=== PATIENT | female | born 1975 | race Hispanic/Latino ===

== ENCOUNTER 2020-12-09 05:30 | Observation (INO) | payer BC ==
[2020-12-05 12:36] VITALS: BP 135/63
[2020-12-05 12:56] LABS: BASOPHILS % (AUTO) 0.4 % (0.0-5.0); EOSINOPHILS % (AUTO) 0.7 % (0.0-8.0); HEMATOCRIT 39.5 % (36-48); LYMPHOCYTES % (AUTO) 20.7 % (21.0-51.0); MEAN CORPUSCULAR HEMOGLOBIN 30.1 pg (27.0-33.0); MEAN CORPUSCULAR HGB CONC 34.4 g/dL (32.0-36.0); MEAN CORPUSCULAR VOLUME 87.4 fL (79-99); MONOCYTES % (AUTO) 5.5 % (3.0-13.0); NEUTROPHILS % (AUTO) 72.1 % (40.0-77.0); PLATELET COUNT (AUTO) 233 K/uL (130-400); RED BLOOD CELL COUNT(AUTO) 4.52 MIL/uL (4.00-5.50); RED CELL DISTRIBUTION WIDTH 12.5 % (11.0-15.5); WHITE BLOOD COUNT (AUTO) 6.7 K/uL (4.8-10.8)
[2020-12-09] VITALS (22 sets, daily range): BP systolic 112–146; BP diastolic 66–86
[~2020-12-09] VITALS: Ht 152.4 cm; Wt 62.7 kg
[~2020-12-09 05:30] MED LIST: FERR159T2 PO
[2020-12-09] MEDS ORDERED: LACTATED RINGERS 1000ML 1,000 ML IV ONE (05:48)
[2020-12-09] MEDS: CEFAZOLIN SODIUM 1 GM VIAL ONE ×2 (05:54→07:02)
[2020-12-09] MEDS ORDERED: LIDOCAINE PF 100MG/5ML (2%) SYRINGE 5ML ONE (06:30)
[2020-12-09] MEDS ORDERED: SUCCINYLCHOLINE CHLORIDE 20 MG/ML 10 ML VIAL ONE (06:30)
[2020-12-09] MEDS ORDERED: PROPOFOL 10 MG/ML 20ML VIAL IV ONE (06:30)
[2020-12-09] MEDS ORDERED: GLYCOPYRROLATE 1 MG/5 ML SYRINGE ONE (06:31)
[2020-12-09] MEDS ORDERED: NEOSTIGMINE 5MG/5ML SYR IV ONE (06:31)
[2020-12-09] MEDS ORDERED: ROCURONIUM 10MG/1ML SYR 10 MG/ML ML ONE (06:31)
[2020-12-09] MEDS ORDERED: MIDAZOLAM HCL 1 MG/ML 2ML VIAL ONE (06:32)
[2020-12-09] MEDS ORDERED: FENTANYL CITRATE PF 50 MCG/1 ML 2ML VIAL ONE ×2 (06:58→08:43)
[2020-12-09] MEDS ORDERED: PHENYLEPHRINE HCL 10 MG/ML 1ML VIAL IV ONE (07:03)
[2020-12-09] MEDS ORDERED: EPHEDRINE SULFATE 50 MG/ML AMPULE ONE (07:04)
[2020-12-09] MEDS ORDERED: ONDANSETRON HCL 4 MG/2 ML VIAL ONE (08:22)
[2020-12-09] MEDS ORDERED: MEPERIDINE-PF 25 MG/ML SYG ONE ×2 (09:06→09:27)
[2020-12-09] MEDS ORDERED: ONDANSETRON HCL 4 MG/2 ML VIAL IVP PRN (10:45)
[2020-12-09] MEDS ORDERED: BISACODYL 10 MG SUPP.RECT RC PRN (10:45)
[2020-12-09] MEDS ORDERED: PROMETHAZINE HCL 25 MG/ML 1ML AMPULE IM PRN (10:45)
[2020-12-09] MEDS ORDERED: IBUPROFEN 600 MG TABLET PO PRN (10:45)
[2020-12-09] MEDS ORDERED: MEPERIDINE-PF 75 MG/ML SYG ONE (10:49)
[2020-12-09] MEDS: MEPERIDINE-PF 75 MG/ML SYG IM PRN ×2 (10:54→14:24)
[2020-12-09] MEDS: PROMETHAZINE HCL 25 MG/ML 1ML AMPULE IM PRN ×2 (10:54→14:23)
[2020-12-09] MEDS: DEXTROSE 5 %-0.45 % NACL 1,000 ML IV PRN ×2 (12:26→20:18)
[2020-12-09] MEDS: ACETAMINOPHEN-CODEINE 300/30MG TAB PO PRN (19:23)
[2020-12-09] MEDS: DOCUSATE SODIUM 100 MG CAP PO PRN (21:06)
[2020-12-09] MEDS: SIMETHICONE 80 MG TAB.CHEW PO PRN (21:07)
[2020-12-10] MEDS: PROMETHAZINE HCL 25 MG/ML 1ML AMPULE IM PRN (00:13)
[2020-12-10] MEDS: MEPERIDINE-PF 75 MG/ML SYG IM PRN (00:14)
[2020-12-10 03:00] VITALS: BP 114/73
[2020-12-10] MEDS ORDERED: HYDROCODONE/ACETAMINOPHEN 7.5/325 MG TAB PO PRN (03:30)
[2020-12-10] MEDS ORDERED: HYDROCODONE/ACETAMINOPHEN 5/325 MG TAB PO PRN (03:45)
[2020-12-10] MEDS: DEXTROSE 5 %-0.45 % NACL 1,000 ML IV PRN (04:26)
[2020-12-10 05:29] LABS: HEMATOCRIT 36.2 % (36-48); MEAN CORPUSCULAR HEMOGLOBIN 29.4 pg (27.0-33.0); MEAN CORPUSCULAR HGB CONC 33.1 g/dL (32.0-36.0); MEAN CORPUSCULAR VOLUME 88.7 fL (79-99); RED BLOOD CELL COUNT(AUTO) 4.08 MIL/uL (4.00-5.50); RED CELL DISTRIBUTION WIDTH 12.6 % (11.0-15.5)
[2020-12-10 07:19] VITALS: BP 113/71
[2020-12-10] MEDS: SIMETHICONE 80 MG TAB.CHEW PO PRN ×2 (08:27→21:10)
[2020-12-10] MEDS: DOCUSATE SODIUM 100 MG CAP PO PRN ×2 (08:27→21:09)
[2020-12-10] MEDS: ACETAMINOPHEN-CODEINE 300/30MG TAB PO PRN (08:27)
[2020-12-10] MEDS: NITROFURANTOIN MONOHYD/M-CRYST 100 MG CAPSULE PO SCH ×2 (10:22→21:09)
[2020-12-10 11:28] VITALS: BP 129/84
[2020-12-10] MEDS ORDERED: ACETAMINOPHEN-CODEINE 300/30MG TAB PO PRN (13:00)
[2020-12-10] MEDS: IBUPROFEN 800 MG TAB PO PRN ×2 (13:26→23:47)
[2020-12-10 19:16] VITALS: BP 123/71
[2020-12-10 23:34] VITALS: BP 119/75
[2020-12-11 03:06] VITALS: BP 111/71
[2020-12-11 07:10] VITALS: BP 104/70
[2020-12-11] MEDS: IBUPROFEN 800 MG TAB PO PRN (09:08)
[2020-12-11] MEDS: DOCUSATE SODIUM 100 MG CAP PO PRN (09:08)
[2020-12-11] MEDS: SIMETHICONE 80 MG TAB.CHEW PO PRN (09:08)
[2020-12-11] MEDS: NITROFURANTOIN MONOHYD/M-CRYST 100 MG CAPSULE PO SCH (09:08)
[2020-12-11 11:13] VITALS: BP 119/85
[2020-12-11] MEDS ORDERED: ACET1TAB25 PO (11:22)
[2020-12-11] MEDS ORDERED: MACR100 PO (11:22)
== END 2020-12-11 13:25 | disposition home or self-care (01) ==
LOC: DAH 05:30 → WSH 05:31 → DAH 05:31 → WSH 09:55
PROVIDERS: ADMIT Obstetrics & Gynecology; ATTEND Obstetrics & Gynecology
DX: N92.1 Excessive and frequent menstruation with irregular cycle (principal); Z20.822 Contact with and (suspected) exposure to COVID-19; N39.3 Stress incontinence (female) (male); N81.4 Uterovaginal prolapse, unspecified; K46.9 Unspecified abdominal hernia without obstruction or gangrene; N83.201 Unspecified ovarian cyst, right side
CPT/HCPCS: 36415 ×3; 57260; 57288; 58263; 85025; 85027; 86850 ×2; 86900 ×2; 86901 ×2; 96360; 96361 ×2; 96372 ×2; A4215; A4216; A4221; A4222; A4223 ×2; A4344; A4351; A4510; A4600; A4606; A4663; A5113; A6260; C1771; C9803; G0378 ×54; J0330; J0690; J2001; J2175 ×5; J2250; J2370; J2405; J2550 ×2; J2704; J2710; J3010 ×2; J3490 ×2; J7120; U0003

== ENCOUNTER 2021-01-16 01:38 | Emergency (ER) | payer BC ==
[~2021-01-16] VITALS: Ht 152.4 cm; Wt 60.8 kg
[~2021-01-16 01:38] MED LIST changes: +ACET1TAB25 PO; +MACR100 PO
[2021-01-16 02:01] VITALS: BP 121/77
[2021-01-16 02:20] LABS: BASOPHILS % (AUTO) 0.5 % (0.0-5.0); EOSINOPHILS % (AUTO) 3.4 % (0.0-8.0); HEMATOCRIT 38.6 % (36-48); LYMPHOCYTES % (AUTO) 49.9 % (21.0-51.0); MEAN CORPUSCULAR HEMOGLOBIN 29.7 pg (27.0-33.0); MEAN CORPUSCULAR HGB CONC 33.4 g/dL (32.0-36.0); MEAN CORPUSCULAR VOLUME 88.7 fL (79-99); PLATELET COUNT (AUTO) 210 K/uL (130-400); RED BLOOD CELL COUNT(AUTO) 4.35 MIL/uL (4.00-5.50); RED CELL DISTRIBUTION WIDTH 11.8 % (11.0-15.5); WHITE BLOOD COUNT (AUTO) 5.7 K/uL (4.8-10.8)
[2021-01-16 02:25] LABS: APPEARANCE,URINE Cloudy (CLEAR); BILIRUBIN,URINE Negative (NEGATIVE); COLOR,URINE Yellow (YELLOW); GLUCOSE, URINE (UA) Negative (NEGATIVE); KETONES,URINE Negative (NEGATIVE); LEUKOCYTE ESTERASE ,URINE Large (NEGATIVE); NITRATE,URINE Negative (NEGATIVE); OCCULT BLOOD,URINE Large (NEGATIVE); PROTEIN,URINE Negative (NEGATIVE)
[2021-01-16 02:30] LABS: CREATININE 0.6 mg/dL (0.5-1.5); POTASSIUM 3.5 mmol/L (3.5-5.1)
[2021-01-16 02:33] VITALS: BP 119/65
[2021-01-16 02:35] LABS: ALBUMIN 4.1 g/dL (3.5-5.0); BILIRUBIN,TOTAL 0.2 mg/dL (0.2-1.0)
[2021-01-16 02:40] LABS: BACTERIA,URINE Few /HPF (None Seen); RBC,URINE 0-1 /HPF (0-1)
[2021-01-16] MEDS ORDERED: 0.9%NACL 1000ML 1,000 ML IV ONE (04:00)
[2021-01-16] MEDS ORDERED: CEFTRIAXONE 1G VIAL IVP ONE (04:00)
[2021-01-16 04:32] VITALS: BP 123/61
== END 2021-01-16 04:44 | disposition home or self-care (01) ==
LOC: EDH 02:07
DX: R07.89 Other chest pain (principal); N30.00 Acute cystitis without hematuria; R10.31 Right lower quadrant pain; D64.9 Anemia, unspecified; Z90.710 Acquired absence of both cervix and uterus; Z79.899 Other long term (current) drug therapy
CPT/HCPCS: 36415; 80053; 81001; 84484; 85025; 87088; 93005